=== PATIENT | female | born 1985 | race Caucasian/White ===

== ENCOUNTER 2018-06-10 19:41 | Emergency (ER) | payer SELFPAY ==
[2018-06-10 19:53] VITALS: BP 138/91
--- NOTE | 2018-06-10 20:07 | UC ---
Lower Extremity/Ankle HPI - HPI Summary HPI Summary: 32 year old female with history of patellar laxity presents after falling last night with left foot and right knee pain. Patient states while walking last night she felt her right patella "pop out" causing her to lose balance and fall injuring her left foot. She states she was able to stand and ambulate immediately after and felt the patella "pop in." She states over the day the pain and swelling got progressively worse. The pain in her knee is now making it difficult to ambulate. She describes the knee pain as "burning" without radiation. States the foot pain is primarily along the lateral edge and at the great toe, worsens with movement of the foot. She has tried Motrin with some improvement. Denies numbness, tingling, and paresthesias of the extremites. Endorses limited ROM of right knee and left foot. - History of Current Complaint Chief Complaint: UCLowerExtremity Stated Complaint: R KNEE, L FOOT INJURY Time Seen by Provider: 06/10/18 19:45 Hx Obtained From: Patient Hx Last Menstrual Period: 05/19/18 ?: No Onset/Duration: Sudden Onset, Lasting Hours Severity Initially: Moderate Severity Currently: Moderate Pain Intensity: 6 Pain Scale Used: 0-10 Numeric Aggravating Factor(s): Standing, Ambulation Alleviating Factor(s): Rest, OTC Meds Able to Bear Weight: Yes - with pain - Allergies/Home Medications Allergies/Adverse Reactions: Allergies Allergy/AdvReac Type Severity Reaction Status Date / Time No Known Allergies Allergy Verified 06/10/18 19:45 PMH/Surg Hx/FS Hx/Imm Hx Previously Healthy: Yes - Surgical History Surgical History: Yes Surgery Procedure, Year, and Place: 2008- bilateral cataract removal with lens implants. 2009 - umbilical hernia repair - Social History Alcohol Use: Occasionally Substance Use Type: None Smoking Status (MU): Never Smoked Tobacco Review of Systems All Other Systems Reviewed And Are Negative: Yes Constitutional: Negative: Fever, Chills Skin: Positive: Bruising - left foot Respiratory: Negative: Shortness Of Breath Cardiovascular: Negative: Chest Pain Gastrointestinal: Negative: Vomiting, Nausea Motor: Negative: Weakness Neurovascular: Negative: Decreased Sensation Musculoskeletal: Positive: Decreased ROM - right knee, left foot Neurological: Negative: Paresthesia, Numbness Is Patient Immunocompromised?: No Physical Exam Triage Information Reviewed: Yes Appearance: Well-Appearing, Pain Distress Vital Signs: Initial Vital Signs Temp 99.5 F 06/10/18 19:47 Pulse 81 06/10/18 19:47 Resp 16 06/10/18 19:47 BP 138/91 06/10/18 19:47 Pulse Ox 98 06/10/18 19:47 Eyes: Positive: Conjunctiva Clear ENT: Positive: Hearing grossly normal Respiratory: Positive: Lungs clear, Normal breath sounds Cardiovascular: Positive: RRR, Pulses Normal Musculoskeletal: Positive: Other: - Tenderness to palpation of the right medial collateral ligament. Mild edema of the right knee. Tenderness to palpation of the left great toe. Neurological: Positive: Alert Diagnostics - Radiology R knee Radiology Interpretation Completed By: ED Physician - no acute fx L foot Radiology Interpretation Completed By: ED Physician - STS, ? subluxation of great toe distal phalanx Lower Extremity Course/Dx - Course Course Of Treatment: 32 year old female with history of frequent right patellar dislocations presents after fall with right knee pain and left foot pain. Tenderness to the medial aspect of the right knee on palpation. Tenderness to the first metatarsal-phalangeal joint. X-rays of the right knee and left foot were negative for fracture. Patella was not subluxed. Possible subluxation of the left great toe. Left foot and right knee feng wraps placed. Advised to wear knee brace to prevent patellar laxity, firm soled shoe, continue ibuprofen as needed and RICE therapy for pain & swelling. - Differential Dx/Diagnosis Differential Diagnosis/HQI/PQRI: Dislocation, Fracture (Closed), Sprain, Strain Provider Diagnosis: Patellar dislocation, Strain of left foot Discharge - Sign-Out/Discharge Documenting (check all that apply): Patient Departure All imaging exams completed and their final reports reviewed: No - Discharge Plan Condition: Improved Disposition: HOME Patient Education Materials: Foot Sprain (ED), Patellar Dislocation (ED) Referrals: Aminah Obrien MD [Medical Doctor] - No Primary Care Phys,NOPCP [Primary Care Provider] - Additional Instructions: Wear a knee brace such as a KNEED-IT to support the patella on the right knee. Firm soled shoes on the left foot. Ibuprofen as needed. Ice, elevate the foot at rest. Feng wrap as needed. Return if worse, new symptoms or other concerns. Follow-up with orthopedics for repetitive subluxing of the kneecap. - Billing Disposition and Condition Condition: IMPROVED Disposition: Home - Attestation Statements Document Initiated by Scribe: No
--- NOTE | 2018-06-11 09:38 | UC ---
Course/Dx - Course Course Of Treatment: xray read foot as normal and knee as joint effusion. patient given immbolizer as needed which is the treatment. no further action required. - Diagnoses Provider Diagnoses: Patellar dislocation, Strain of left foot Discharge - Sign-Out/Discharge Documenting (check all that apply): Patient Departure All imaging exams completed and their final reports reviewed: Yes - Discharge Plan Condition: Improved Disposition: HOME Patient Education Materials: Foot Sprain (ED), Patellar Dislocation (ED) Referrals: Aminah Obrien MD [Medical Doctor] - No Primary Care Phys,NOPCP [Primary Care Provider] - Additional Instructions: Wear a knee brace such as a KNEED-IT to support the patella on the right knee. Firm soled shoes on the left foot. Ibuprofen as needed. Ice, elevate the foot at rest. Feng wrap as needed. Return if worse, new symptoms or other concerns. Follow-up with orthopedics for repetitive subluxing of the kneecap. - Billing Disposition and Condition Condition: IMPROVED Disposition: Home
== END 2018-06-10 20:50 | disposition home or self-care (01) ==
LOC: UCEAST 19:41
DX: S83.004A Unspecified dislocation of right patella, initial encounter (principal); S96.912A Strain of unspecified muscle and tendon at ankle and foot level, left foot, initial encounter; W18.30XA Fall on same level, unspecified, initial encounter; Y93.01 Activity, walking, marching and hiking; Y92.9 Unspecified place or not applicable
CPT/HCPCS: 99211; G0463